=== PATIENT | female | born 1980 | race Caucasian/White ===

== ENCOUNTER 2016-10-25 19:59 | Emergency (ER) | payer OTHER ==
[2016-10-25 21:15] VITALS: BP 144/95
== END 2016-10-25 21:33 | disposition home or self-care (01) ==
LOC: ED 19:59
DX: S61.210A Laceration without foreign body of right index finger without damage to nail, initial encounter (principal); X58.XXXA Exposure to other specified factors, initial encounter; Y93.89 Activity, other specified; Y99.8 Other external cause status; Y92.89 Other specified places as the place of occurrence of the external cause
CPT/HCPCS: A4570; Q0092

== ENCOUNTER 2016-12-26 12:18 | Emergency (ER) | payer SELFPAY ==
[~2016-12-26] VITALS: Ht 154.9 cm; Wt 96.6 kg
[2016-12-26 12:53] LABS: microscopic required? NO
[2016-12-26 13:14] LABS: UA SPECIFIC GRAVITY >=1.030 (1.005-1.035); urine erythrocyte NEGATIVE (NEGATIVE)
[2016-12-26 14:56] VITALS: BP 118/67
== END 2016-12-26 14:24 | disposition home or self-care (01) ==
LOC: ED 12:18
PROVIDERS: Emergency Medicine
DX: R42 Dizziness and giddiness (principal); R11.2 Nausea with vomiting, unspecified
CPT/HCPCS: J8597; Q0162